=== PATIENT | male | born 1955 | race Hispanic/Latino ===

== ENCOUNTER → 2017-08-31 | Day surgery (SDC) | payer OTHER ==
[2017-08-30 12:50] LABS: BASOPHILS % 0.3 % (0.0-1.0); EOSINOPHILS # (AUTO) 0.3 (0.0-0.4); EOSINOPHILS % 4.3 % (0.0-6.0); HEMATOCRIT 39.5 % (38.2-49.6); HEMOGLOBIN 13.1 g/dL (14.0-18.0); LYMPHOCYTES # (AUTO) 1.6 (1.0-3.2); LYMPHOCYTES % 25.8 % (18.0-39.1); MEAN CORPUSCULAR HEMOGLOBIN 31.5 pg (28-32); MEAN CORPUSCULAR HGB CONC 33.2 g/dL (31-35); MONOCYTES # (AUTO) 0.6 (0.2-0.8); NEUTROPHILS # (AUTO) 3.7 (2.1-6.9); NEUTROPHILS % 59.1 % (38.7-80.0); PLATELET COUNT 205 x10e3/uL (140-360); RED BLOOD COUNT 4.16 x10e6/uL (4.3-5.7); RED CELL DISTRIBUTION WIDTH 13.3 % (11.7-14.4)
[2017-08-30 13:10] LABS: INR 1.05; PROTHROMBIN TIME 12.9 seconds (11.9-14.5)
[2017-08-30 13:26] LABS: ALANINE AMINOTRANSFERASE 34 IU/L (0-55); ALBUMIN 3.7 g/dL (3.5-5.0); ALBUMIN/GLOBULIN RATIO 0.9 (0.8-2.0); ALKALINE PHOSPHATASE 87 IU/L (40-150); ANION GAP 12.8 mmol/L (8-16); BLOOD UREA NITROGEN 17 mg/dL (7-26); BUN/CREATININE RATIO 15 (6-25); CARBON DIOXIDE 28 mmol/L (22-29); CHLORIDE 102 mmol/L (98-107); CHOL/HDL RATIO 4.1 (3.9-4.7); CHOLESTEROL 185 MD/DL (0-199); CREATININE, SERUM 1.17 mg/dL (0.72-1.25); EST GLOMERULAR FILTRATION RATE > 60 ML/MIN (60-); GLUCOSE 229 mg/dL (74-118); HDL CHOLESTEROL 45 MG/DL (40-60); LDL CHOLESTEROL 91 MG/DL (60-130); POTASSIUM 4.8 mmol/L (3.5-5.1); SODIUM 138 mmol/L (136-145); TRIGLYCERIDES 243 MG/DL (0-149)
[~2017-08-31] VITALS: Ht 177.8 cm; Wt 131.5 kg
[2017-08-31] VITALS (11 sets, daily range): BP systolic 103–126; BP diastolic 74–94
[~2017-08-31] MED LIST: ASPIR 8181 MG PO; ASPIRIN 325 MG TAB ONE; ATENOLOL50 MG PO; FENTANYL CITRATE/PF 100MCG/2 ML INJ ONE; FISH OIL OMEGA1 EACH PO; GLIMEPIRIDE4 MG PO; HEPARIN SOD/SOD CHLORIDE 2,000 ML ONE; IOPAMIDOL 370 MG/ML 200 ML INFUS..BTL INJ ONE; LIDOCAINE HCL 2% LOCAL 20 ML VIAL ONE; LIPITOR10 MG PO; LISINOPRIL10 MG PO; METFORMIN HCL500 MG PO; MIDAZOLAM HCL 2 MG/2 ML VIAL ONE; PRAVASTATIN SOD40 MG PO; SODIUM CHLORIDE 0.9% 1000ML 1,000 ML ONE
--- NOTE | 2017-08-31 09:14 | Operative Report ---
DATE OF PROCEDURE: August 31, 2017 PROCEDURE INDICATION: Unstable angina, CCS3 and abnormal stress test. PROCEDURES PERFORMED 1. Left heart catheterization. 2. Selective coronary angiography times 2. 3. A 6-[place] Angio-Seal closure. PROCEDURE COMPLICATIONS: None. ESTIMATED BLOOD LOSS: Less than 15 mL. PROCEDURE SUMMARY: After consent was obtained, the patient was prepped and draped in a sterile fashion. The left femoral site was locally infiltrated with 2% lidocaine. Access was obtained using a micropuncture kit, and a 6-[place] sheath was placed. All catheters were placed over a lead EJ wire to their respective positions. Selective engagement of the left main was performed with a JL4 6-[place]ian of the right coronary artery with a JL4 6-[place]err[place]ian. The following findings were observed, and Angio-Seal was deployed at the end of the procedure to the right common femoral artery achieving hemostasis. 1. LV pressure was 141/1 with end-diastolic pressure of 30. 2. Aortic pressure was 138/68. 3. Left main with luminal irregularities, large caliber. Gives an LAD and a circumflex. 4. The LAD and the proximal portion has luminal irregularities. It gives a 1st diagonal that has 50% ostial stenosis and 2 additional diagonals of small caliber, as well as multiple septal perforators of small caliber. The LAD continues to the apex and wraps around an end. 5. The circumflex has medium caliber 1st obtuse marginal. The 2nd obtuse marginal has a focal area of 40% to 50% stenosis in the midportion, and is overall small to medium in caliber. Two left posterolateral branches, the last of which has a 50% to 60% area of focal midsegment stenosis, and is small to medium in caliber. 6. The right coronary is nondominant with luminal irregularities and gives 2 RV marginals. 7. LV systolic function is normal with left ventricular ejection fraction of 60% to 65%. CONCLUSION 1. Moderate coronary artery disease, multivessel. 2. Elevated left ventricular end-diastolic pressure. 3. Preserved left ventricular systolic function. RECOMMENDATIONS: Diuretics as needed. Low salt diet. Up titrate statin therapy. Continue rest of cardiovascular medications. Job#: [id number] [place]
== END | disposition home or self-care (01) ==
LOC: CATH LAB 07:47
PROVIDERS: ATTEND Internal Medicine Interventional Cardiology
DX: I25.118 Atherosclerotic heart disease of native coronary artery with other forms of angina pectoris (principal); I10 Essential (primary) hypertension; E78.5 Hyperlipidemia, unspecified; E66.09 Other obesity due to excess calories
CPT/HCPCS: 36415; 80053; 80061; 85025; 85610; 93005; C1769; J2001; J2250; J7030; Q9967

== ENCOUNTER → 2018-06-07 | Outpatient (CLI) | payer OTHER ==
[~2018-06-07] MED LIST changes: -ASPIRIN 325 MG TAB ONE; -FENTANYL CITRATE/PF 100MCG/2 ML INJ ONE; -HEPARIN SOD/SOD CHLORIDE 2,000 ML ONE; -IOPAMIDOL 370 MG/ML 200 ML INFUS..BTL INJ ONE; -LIDOCAINE HCL 2% LOCAL 20 ML VIAL ONE; -MIDAZOLAM HCL 2 MG/2 ML VIAL ONE; -SODIUM CHLORIDE 0.9% 1000ML 1,000 ML ONE
--- NOTE | 2018-06-07 13:35 | Diagnostic Imaging Report ---
Radiographs of the left and right knee 2 views each knee - HISTORY: Pain COMPARISON: None available. FINDINGS: Bones: No acute displaced fracture. Osseous alignment is within normal limits. Joints: Mild tricompartmental degenerative arthrosis. No osseous erosion. Soft tissues: Scattered vascular calcifications. IMPRESSION: Mild tricompartmental degenerative arthrosis. No osseous erosion. Signed by: Dr. Christiano Morrell M.D. on 06/07/2018 1:31 PM
--- NOTE | 2018-06-07 13:36 | Diagnostic Imaging Report ---
Radiographs of the lumbar spine HISTORY: Pain COMPARISON: None available. FINDINGS: Bones: No acute displaced fracture. Osseous alignment is within normal limits. Joints: Mild scattered degenerative change. No osseous erosion. No pars interarticularis defects. Soft tissues: Scattered vascular calcification IMPRESSION: Mild scattered degenerative change. No osseous erosion Signed by: Dr. Christiano Morrell M.D. on 06/07/2018 1:33 PM
== END ==
LOC: RAD 12:34
PROVIDERS: ATTEND Internal Medicine
DX: M54.5 Low back pain (principal); M25.562 Pain in left knee; M25.561 Pain in right knee
CPT/HCPCS: 72110

== ENCOUNTER → 2021-02-09 | Day surgery (SDC) | payer MEDICARE ==
[2021-01-26 11:04] LABS: BASOPHILS % 0.4 % (0.0-1.0); EOSINOPHILS # (AUTO) 0.3 (0.0-0.4); EOSINOPHILS % 4.1 % (0.0-6.0); HEMATOCRIT 44.9 % (38.2-49.6); HEMOGLOBIN 14.8 g/dL (14.0-18.0); LYMPHOCYTES # (AUTO) 1.8 (1.0-3.2); LYMPHOCYTES % 26.8 % (18.0-39.1); MEAN CORPUSCULAR HEMOGLOBIN 30.6 pg (28-32); MONOCYTES # (AUTO) 0.6 (0.2-0.8); NEUTROPHILS # (AUTO) 4.1 (2.1-6.9); NEUTROPHILS % 60.1 % (38.7-80.0); PLATELET COUNT 235 x10e3/uL (140-360); RED BLOOD COUNT 4.83 x10e6/uL (4.3-5.7); RED CELL DISTRIBUTION WIDTH 13.6 % (11.7-14.4)
[2021-01-26 11:17] LABS: PARTIAL THROMBOPLASTIN TIME 28.3 seconds (23.8-35.5)
[2021-01-26 11:25] LABS: ALBUMIN 3.9 g/dL (3.5-5.0); ALBUMIN/GLOBULIN RATIO 0.8 (0.8-2.0); ANION GAP 17.3 mmol/L (8-16); CALCIUM 9.8 mg/dL (8.4-10.2); CREATININE, SERUM 1.09 mg/dL (0.72-1.25); POTASSIUM 4.3 mmol/L (3.5-5.1)
[2021-01-26 12:19] LABS: CHOL/HDL RATIO 3.8 (3.9-4.7)
[~2021-02-09] VITALS: Ht 177.8 cm; Wt 127.0 kg
[2021-02-09] VITALS (8 sets, daily range): BP systolic 110–149; BP diastolic 68–85
[~2021-02-09] MED LIST changes: +ASPIRIN 325 MG TAB ONE; +FENTANYL CITRATE/PF 100MCG/2 ML INJ ONE; +FLOMAX0.4 MG PO; +HEPARIN SOD (PORCINE) 1000 UNIT/ML 30ML ONE; +HEPARIN SOD/SOD CHLORIDE 2,000 ML ONE; +IOPAMIDOL 370 MG/ML 200 ML INFUS..BTL INJ ONE; +JARDIANCE10 MG PO; +LIDOCAINE HCL 2% LOCAL 20 ML VIAL ONE; +MELOXICAM7.5 MG PO; +MIDAZOLAM HCL 2 MG/2 ML VIAL ONE; +NEXIUM40 MG PO; +NITROGLYCERIN/D5W 200 MCG/ML 250 ML ONE; +SODIUM CHLORIDE 0.9% 1000ML 1,000 ML ONE; +VERAPAMIL HCL 2.5 MG/ML 2 ML VIAL ONE
== END | disposition home or self-care (01) ==
LOC: CATH LAB 01-29 07:21
PROVIDERS: ATTEND Internal Medicine Cardiovascular Disease
DX: I25.10 Atherosclerotic heart disease of native coronary artery without angina pectoris (principal); R94.39 Abnormal result of other cardiovascular function study; I10 Essential (primary) hypertension; E78.5 Hyperlipidemia, unspecified; E11.9 Type 2 diabetes mellitus without complications; U07.1 COVID-19; Z79.82 Long term (current) use of aspirin; Z79.84 Long term (current) use of oral hypoglycemic drugs; Z79.899 Other long term (current) drug therapy
CPT/HCPCS: 36415 ×3; 76937; 80053; 80061; 82948 ×2; 85025; 85610; 85730; 93458; C1887; J1644; J2001; J2250; J3010; J7030; Q9967; U0002; 93454; 99152